=== PATIENT | female | born 1950 | race Asian ===

== ENCOUNTER 2024-07-14 14:24 | Inpatient (IN) | payer MEDICARE, OTHER ==
[~2024-07-14] VITALS: Ht 152.4 cm; Wt 47.2 kg
[2024-07-14] MEDS: IV NS 0.9% 500 ML BAG IV ONE (15:30)
[2024-07-14] MEDS: CEFEPIME 1 GM in IV D5W 50 ML IV ONE (15:30)
[2024-07-14 15:52] LABS: BASOPHILS % (AUTO) 0.6 % (0.0-2.0); EOSINOPHILS # (AUTO) 0.1 K/uL (0.0-0.7); EOSINOPHILS % (AUTO) 0.9 % (0.0-6.0); HEMATOCRIT 39 % (33-45); HEMOGLOBIN 13.1 g/dL (11.5-14.8); LYMPHOCYTES # (AUTO) 1.5 K/uL (0.8-4.8); LYMPHOCYTES % (AUTO) 25.3 % (20.0-44.0); MEAN CORPUSCULAR HEMOGLOBIN 32 PG (26.0-33.0); MEAN CORPUSCULAR HGB CONC 33 g/dl (31.0-36.0); MEAN CORPUSCULAR VOLUME 95 fL (82-100); MONOCYTES # (AUTO) 0.4 K/uL (0.1-1.30); MONOCYTES % (AUTO) 7.4 % (2.0-12.0); NEUTROPHILS % (AUTO) 65.8 % (43.0-81.0); PLATELET COUNT (AUTO) 260 K/uL (150-450); RED BLOOD CELL COUNT(AUTO) 4.12 MIL/uL (4.0-5.2)
[2024-07-14 16:05] LABS: INR 0.92 (0.91-1.10); PARTIAL THROMBOPLASTIN TIME 30.2 SEC (24.3-34.3); PROTHROMBIN TIME 9.8 SECS (9.2-11.1)
[2024-07-14 16:38] LABS: CALCIUM, SERUM 8.5 mg/dL (8.5-10.1); CARBON DIOXIDE 33 mmol/L (21-32); CHLORIDE 100 mmol/L (98-107); CREATININE 0.9 mg/dL (0.6-1.3); GLUCOSE 136 mg/dL (74-106); POTASSIUM 3.2 mmol/L (3.5-5.1); SODIUM SERUM 142 mmol/L (136-145); UREA NITROGEN, BLOOD 12 mg/dL (7-18)
[2024-07-14 16:44] LABS: ALANINE AMINOTRANSFERASE 13 U/L (12-78); ALBUMIN 3.4 g/dL (3.4-5.0); ALKALINE PHOSPHATASE 74 U/L (46-116); ASPARTATE AMINOTRANSFERASE 11 U/L (15-37); BILIRUBIN,DIRECT 0.1 mg/dL (0.0-0.2); BILIRUBIN,TOTAL 0.3 mg/dL (0.2-1.0); TOTAL PROTEIN, SERUM 7.8 g/dL (6.4-8.2)
[2024-07-14 16:49] LABS: LACTIC ACID 3.2 mmol/L (0.4-2.0)
[2024-07-14] MEDS: HALOPERIDOL LACTATE INJ 5 MG/ML VIAL IM ONE (17:02)
[2024-07-14] MEDS ORDERED: HALOPERIDOL LACTATE INJ 5 MG/ML VIAL ONE (17:03)
[2024-07-14] MEDS: IV NS 0.9% 1,000 ML BAG IV ONE (17:30)
[2024-07-14] MEDS: VANCOMYCIN 1 GM in IV D5W 250 ML IV ONE (17:30)
[2024-07-14 19:06] LABS: APPEARANCE,URINE CLEAR (CLEAR); BILIRUBIN,URINE NEGATIVE (NEGATIVE); BLOOD, URINE NEGATIVE Ery/uL (NEGATIVE); COLOR,URINE YELLOW (YELLOW); KETONES,URINE NEGATIVE (NEGATIVE); LEUKOCYTE ESTERASE ,URINE NEGATIVE (NEGATIVE); NITRITE, URINE NEGATIVE (NEGATIVE); PROTEIN,URINE NEGATIVE (NEGATIVE); UGLUCOSE NEGATIVE (NEGATIVE); UROBILINOGEN,URINE 0.2 EU/dL (0.2)
[2024-07-14 20:00] VITALS: BP_SYST 148; BP_SYST 151; BP_DIAS 75; BP_DIAS 81; TEMP 98.7; O2SAT 93; O2SAT 95
[2024-07-14] MEDS ORDERED: ONDANSETRON HCL/PF 4 MG/2 ML VIAL IVP PRN (20:00)
[2024-07-14] MEDS ORDERED: ACETAMINOPHEN 325 MG TABLET PO PRN (20:00)
[2024-07-14] MEDS ORDERED: Z GUARD REMEDY 4 OZ OINT TP PRN (20:00)
[2024-07-14] MEDS ORDERED: OLANZAPINE 10 MG VIAL IM PRN (20:00)
[2024-07-14] MEDS: IV LR 1000 ML 1,000 ML IV SCH (21:22)
[2024-07-14] MEDS: ENOXAPARIN SODIUM 40 MG/0.4 ML DISP.SYRIN SQ SCH (21:24)
[2024-07-15] MEDS: VANCOMYCIN 500 MG in IV D5W 100ml IV SCH (05:10)
[2024-07-15 07:42] LABS: BASOPHILS % (AUTO) 0.8 % (0.0-2.0); EOSINOPHILS % (AUTO) 0.8 % (0.0-6.0); HEMATOCRIT 37 % (33-45); HEMOGLOBIN 12.3 g/dL (11.5-14.8); LYMPHOCYTES # (AUTO) 1.6 K/uL (0.8-4.8); MEAN CORPUSCULAR HEMOGLOBIN 32 PG (26.0-33.0); MEAN CORPUSCULAR HGB CONC 33 g/dl (31.0-36.0); MEAN CORPUSCULAR VOLUME 96 fL (82-100); MONOCYTES # (AUTO) 0.7 K/uL (0.1-1.30); MONOCYTES % (AUTO) 11.3 % (2.0-12.0); NEUTROPHILS # (AUTO) 3.5 K/uL (1.8-8.9); NEUTROPHILS % (AUTO) 59.1 % (43.0-81.0); PLATELET COUNT (AUTO) 214 K/uL (150-450); RED BLOOD CELL COUNT(AUTO) 3.84 MIL/uL (4.0-5.2); RED CELL DISTRIBUTION WIDTH 14.1 % (11.5-15.0); WHITE BLOOD COUNT (AUTO) 5.9 K/uL (4.3-11.0)
[2024-07-15 08:05] LABS: CALCIUM, SERUM 8.1 mg/dL (8.5-10.1); CARBON DIOXIDE 28 mmol/L (21-32); CHLORIDE 108 mmol/L (98-107); CREATININE 0.7 mg/dL (0.6-1.3); GLUCOSE 112 mg/dL (74-106); MAGNESIUM 2.3 mg/dL (1.8-2.4); PHOSPHORUS 3.2 mg/dL (2.5-4.9); POTASSIUM 3.2 mmol/L (3.5-5.1); SODIUM SERUM 143 mmol/L (136-145); UREA NITROGEN, BLOOD 6 mg/dL (7-18)
[2024-07-15] MEDS: PANTOPRAZOLE 40 MG TABLET.DR PO SCH (08:10)
[2024-07-15 08:27] LABS: CHOLESTEROL 109 mg/dL (<200); HDL CHOLESTEROL 62 mg/dL (40-60); LDL 54 mg/dL (0-99); TRIGLYCERIDES 67 mg/dL (30-150)
[2024-07-15] MEDS: POTASSIUM CHLORIDE 20 MEQ TAB.PRT.SR PO SCH (10:12)
[2024-07-15] MEDS ORDERED: DOXY100T2 PO (12:29)
[2024-07-15 17:00] VITALS: BP 149/86; TEMP 97.5; O2SAT 100
[2024-07-15 20:29] VITALS: BP 119/48; TEMP 98.1; O2SAT 99
[2024-07-16] MEDS ORDERED: ASCO500T10 PO (02:01)
[2024-07-16] MEDS ORDERED: ASPI-1420 PO (02:01)
[2024-07-16] MEDS ORDERED: ATOR10TA PO (02:02)
[2024-07-16] MEDS ORDERED: CYAN500T64 PO (02:03)
[2024-07-16] MEDS ORDERED: BETH5TAB2 PO (02:03)
[2024-07-16] MEDS ORDERED: DIVA500T2 PO (02:05)
[2024-07-16] MEDS ORDERED: DOCU250C14 PO (02:06)
[2024-07-16] MEDS ORDERED: DONE5TAB34 PO (02:06)
[2024-07-16] MEDS ORDERED: GABA-532 PO (02:09)
[2024-07-16] MEDS ORDERED: IPRA3AMP22 IH (02:09)
[2024-07-16] MEDS ORDERED: METF-440 PO (02:10)
[2024-07-16] MEDS ORDERED: FURO-145 PO (02:10)
[2024-07-16] MEDS ORDERED: SENN8.6T19 PO (02:11)
[2024-07-16] MEDS ORDERED: MULT-1119 PO (02:12)
[2024-07-16] MEDS ORDERED: TRAM50TA PO (02:13)
== END 2024-07-15 21:23 | DRG 602 ==
LOC: ER 14:58 → MED 19:27
PROVIDERS: ADMIT Nurse Practitioner Acute Care; ATTEND Nurse Practitioner Acute Care
DX: L03.115 Cellulitis of right lower limb (principal); G93.41 Metabolic encephalopathy; E87.20 Acidosis, unspecified; E87.6 Hypokalemia; F03.90 Unspecified dementia, unspecified severity, without behavioral disturbance, psychotic disturbance, mood disturbance, and anxiety; K62.3 Rectal prolapse; F39 Unspecified mood [affective] disorder
CPT/HCPCS: 36415; 71045-TC; 80048-TC; 80061-TC; 80076-TC; 83605-TC; 83735-TC; 84100-TC; 84484-TC; 85025-TC; 85730-TC; 87040-TC; 87086-TC; 93971-TC; A4223; G0378; J0692; J1630; J1650; J3370; J7030; J7040; J7060; J7120

== ENCOUNTER 2024-07-15 21:53 | Inpatient (IN) | payer MEDICARE, OTHER ==
[~2024-07-15] VITALS: Ht 152.4 cm; Wt 47.2 kg
[~2024-07-15 21:53] MED LIST: DOXY100T2 PO
[2024-07-15] MEDS ORDERED: MAGNESIUM HYDROXIDE 30 ML UDC PO PRN (23:30)
[2024-07-15] MEDS ORDERED: MAG HYDROX/AL HYDROX/SIMETH 30 ML UDC PO PRN (23:30)
[2024-07-15] MEDS ORDERED: ZOLPIDEM TARTRATE 5 MG TABLET PO PRN ×2 (23:30)
[2024-07-15] MEDS ORDERED: ACETAMINOPHEN 325 MG TABLET PO PRN (23:30)
[2024-07-16] MEDS: BLOOD SUGAR DIAGNOSTIC 1 EACH STRIP IN ONE (00:16)
[2024-07-16] MEDS ORDERED: ASCO500T10 PO (02:01)
[2024-07-16] MEDS ORDERED: ASPI-1420 PO (02:01)
[2024-07-16] MEDS ORDERED: ATOR10TA PO (02:02)
[2024-07-16] MEDS ORDERED: CYAN500T64 PO (02:03)
[2024-07-16] MEDS ORDERED: BETH5TAB2 PO (02:03)
[2024-07-16] MEDS ORDERED: DIVA500T2 PO (02:05)
[2024-07-16] MEDS ORDERED: DOCU250C14 PO (02:06)
[2024-07-16] MEDS ORDERED: DONE5TAB34 PO (02:06)
[2024-07-16] MEDS ORDERED: IPRA3AMP22 IH (02:09)
[2024-07-16] MEDS ORDERED: GABA-532 PO (02:09)
[2024-07-16] MEDS ORDERED: METF-440 PO (02:10)
[2024-07-16] MEDS ORDERED: FURO-145 PO (02:10)
[2024-07-16] MEDS ORDERED: SENN8.6T19 PO (02:11)
[2024-07-16] MEDS ORDERED: MULT-1119 PO (02:12)
[2024-07-16] MEDS ORDERED: TRAM50TA PO (02:13)
[2024-07-16 08:00] VITALS: BP 119/56; TEMP 97.8; O2SAT 98
[2024-07-16] MEDS ORDERED: HOME MED MISCELLANEOUS XX SCH (15:00)
[2024-07-16 16:00] VITALS: BP 111/85; TEMP 97.9; O2SAT 98
[2024-07-16] MEDS ORDERED: IPRATROPIUM NEB FS 0.5 MG/2.5 ML AMPUL.NEB NEB PRN (16:00)
[2024-07-16] MEDS ORDERED: ALBUTEROL FS 2.5 MG/0.5 ML VIAL.NEB NEB PRN (16:00)
[2024-07-16] MEDS: SENNOSIDES 8.6 MG TABLET PO SCH (16:33)
[2024-07-16] MEDS: DOXYCYCLINE HYCLATE (100 MG) 100 MG TABLET PO SCH (16:33)
[2024-07-16] MEDS: GABAPENTIN 100 MG CAPSULE PO SCH (16:33)
[2024-07-16] MEDS: METFORMIN 500 MG TABLET PO SCH (16:33)
[2024-07-16] MEDS: OXCARBAZEPINE 150 MG TABLET PO SCH (16:34)
[2024-07-16 20:38] VITALS: BP 130/67; TEMP 98.2; O2SAT 97
[2024-07-16] MEDS ORDERED: BETHANECHOL CHLORIDE 5 MG TABLET PO SCH (21:00)
[2024-07-16] MEDS: MIRTAZAPINE 15 MG TABLET PO SCH (21:13)
[2024-07-16] MEDS: DONEPEZIL 5 MG TABLET PO SCH (21:13)
[2024-07-16] MEDS: ATORVASTATIN 10 MG TABLET PO SCH (21:13)
[2024-07-17 08:00] VITALS: BP 117/59; TEMP 97.8; O2SAT 97
[2024-07-17] MEDS: FUROSEMIDE 20 MG TABLET PO SCH (08:41)
[2024-07-17] MEDS: DOCUSATE SODIUM 250 MG CAPSULE PO SCH (08:42)
[2024-07-17] MEDS: CYANOCOBALAMIN 500 MCG TABLET PO SCH (08:42)
[2024-07-17] MEDS: MULTIVITAMINS,THERAGRAN 1 UDTAB TABLET PO SCH (08:42)
[2024-07-17] MEDS: ASPIRIN EC 81 MG TABLET.DR PO SCH (08:42)
[2024-07-17] MEDS: ASCORBIC ACID 500 MG TABLET PO SCH (08:42)
[2024-07-17 08:47] LABS: BASOPHILS % (AUTO) 0.8 % (0.0-2.0); EOSINOPHILS # (AUTO) 0.1 K/uL (0.0-0.7); EOSINOPHILS % (AUTO) 1.5 % (0.0-6.0); HEMATOCRIT 32 % (33-45); HEMOGLOBIN 10.7 g/dL (11.5-14.8); LYMPHOCYTES # (AUTO) 1.7 K/uL (0.8-4.8); LYMPHOCYTES % (AUTO) 32.6 % (20.0-44.0); MEAN CORPUSCULAR HEMOGLOBIN 32 PG (26.0-33.0); MEAN CORPUSCULAR HGB CONC 33 g/dl (31.0-36.0); MEAN CORPUSCULAR VOLUME 97 fL (82-100); MONOCYTES # (AUTO) 0.5 K/uL (0.1-1.30); MONOCYTES % (AUTO) 9.4 % (2.0-12.0); NEUTROPHILS % (AUTO) 55.7 % (43.0-81.0); PLATELET COUNT (AUTO) 221 K/uL (150-450); RED BLOOD CELL COUNT(AUTO) 3.33 MIL/uL (4.0-5.2); RED CELL DISTRIBUTION WIDTH 14.1 % (11.5-15.0); WHITE BLOOD COUNT (AUTO) 5.4 K/uL (4.3-11.0)
[2024-07-17 09:05] LABS: BILIRUBIN,TOTAL 0.4 mg/dL (0.2-1.0); CALCIUM, SERUM 8.4 mg/dL (8.5-10.1); CREATININE 0.7 mg/dL (0.6-1.3); POTASSIUM 3.3 mmol/L (3.5-5.1)
[2024-07-17 09:06] LABS: ALBUMIN 2.7 g/dL (3.4-5.0); TOTAL PROTEIN, SERUM 6.1 g/dL (6.4-8.2)
[2024-07-17 16:04] VITALS: BP 120/62; TEMP 97.7; O2SAT 100
[2024-07-17 20:21] VITALS: BP 115/55; TEMP 97.7; O2SAT 97
[2024-07-18 08:00] VITALS: BP 146/76; TEMP 97.9; O2SAT 100
[2024-07-18 16:00] VITALS: BP 120/88; TEMP 97.8; O2SAT 99
[2024-07-18 21:12] VITALS: BP 114/50; TEMP 97.9; O2SAT 98
[2024-07-18] MEDS: OXCARBAZEPINE 150 MG TABLET PO SCH (21:39)
[2024-07-19] MEDS ORDERED: Z GUARD REMEDY 4 OZ OINT TP PRN (07:30)
[2024-07-19 08:00] VITALS: BP 140/76; TEMP 98.6; O2SAT 97
[2024-07-19] MEDS: Z GUARD REMEDY 4 OZ OINT TP SCH (09:05)
[2024-07-19 16:00] VITALS: BP 114/54; TEMP 97.8; O2SAT 98
[2024-07-19 20:00] VITALS: BP 142/69; TEMP 97.8; O2SAT 95
[2024-07-19] MEDS: TRAMADOL HCL 50 MG TABLET PO PRN (21:54)
[2024-07-20 08:00] VITALS: BP 118/64; TEMP 98.7; O2SAT 97
[2024-07-20 16:00] VITALS: BP 133/50; TEMP 97.9; O2SAT 96
[2024-07-20 20:26] VITALS: BP 132/62; TEMP 98.3; O2SAT 97
[2024-07-21 08:23] VITALS: BP 126/62; TEMP 97.8; O2SAT 100
[2024-07-21] MEDS: OXCARBAZEPINE 150 MG TABLET PO SCH (14:09)
[2024-07-21 15:51] VITALS: BP 122/94; TEMP 97.9; O2SAT 98
[2024-07-21 20:00] VITALS: BP 115/46; TEMP 98.1; O2SAT 97
[2024-07-21] MEDS: MIRTAZAPINE 15 MG TABLET PO SCH (21:33)
[2024-07-22 08:00] VITALS: BP 120/70; TEMP 97.7; O2SAT 98
[2024-07-22 08:03] LABS: BASOPHILS # (AUTO) 0.1 K/uL (0.0-0.2); BASOPHILS % (AUTO) 0.8 % (0.0-2.0); EOSINOPHILS % (AUTO) 0.4 % (0.0-6.0); HEMATOCRIT 34 % (33-45); HEMOGLOBIN 11.5 g/dL (11.5-14.8); LYMPHOCYTES # (AUTO) 1.9 K/uL (0.8-4.8); LYMPHOCYTES % (AUTO) 26.2 % (20.0-44.0); MEAN CORPUSCULAR HEMOGLOBIN 32 PG (26.0-33.0); MEAN CORPUSCULAR HGB CONC 34 g/dl (31.0-36.0); MEAN CORPUSCULAR VOLUME 95 fL (82-100); MONOCYTES # (AUTO) 0.6 K/uL (0.1-1.30); NEUTROPHILS # (AUTO) 4.6 K/uL (1.8-8.9); NEUTROPHILS % (AUTO) 63.6 % (43.0-81.0); PLATELET COUNT (AUTO) 339 K/uL (150-450); RED BLOOD CELL COUNT(AUTO) 3.56 MIL/uL (4.0-5.2); RED CELL DISTRIBUTION WIDTH 14.1 % (11.5-15.0); WHITE BLOOD COUNT (AUTO) 7.2 K/uL (4.3-11.0)
[2024-07-22 08:25] LABS: CALCIUM, SERUM 9.1 mg/dL (8.5-10.1); CREATININE 0.8 mg/dL (0.6-1.3); POTASSIUM 3.5 mmol/L (3.5-5.1)
[2024-07-22 16:00] VITALS: BP 109/93; TEMP 97.4; O2SAT 94
[2024-07-22 19:48] VITALS: BP 113/50; TEMP 97.4; O2SAT 98
[2024-07-23 08:00] VITALS: BP 118/55; TEMP 97.5; O2SAT 98
[2024-07-23 16:00] VITALS: BP 115/56; TEMP 97.7; O2SAT 97
[2024-07-23] MEDS: QUETIAPINE FUMARATE 25 MG TABLET PO SCH (20:50)
[2024-07-23 21:14] VITALS: BP 124/89; TEMP 97.9; O2SAT 96
[2024-07-24 08:00] VITALS: BP 135/86; TEMP 98.6; O2SAT 99
[2024-07-24 16:00] VITALS: BP 100/53; TEMP 98.6; O2SAT 98
[2024-07-24 21:00] VITALS: BP 118/54; TEMP 98.2; O2SAT 98
[2024-07-25 08:00] VITALS: BP 141/56; TEMP 97.9; O2SAT 98
[2024-07-25] MEDS: GABAPENTIN 100 MG CAPSULE PO SCH (12:20)
[2024-07-25 16:00] VITALS: BP 113/53; TEMP 97.8; O2SAT 98
[2024-07-25 20:32] VITALS: BP 133/62; TEMP 97.9; O2SAT 97
[2024-07-26 08:00] VITALS: BP 142/65; TEMP 98.1; O2SAT 96
== END 2024-07-26 16:10 | DRG 885 ==
LOC: GPS 21:53
PROVIDERS: ADMIT Psychiatry & Neurology Psychiatry; ATTEND Internal Medicine
DX: F39 Unspecified mood [affective] disorder (principal); F01.53 Vascular dementia, unspecified severity, with mood disturbance; L03.115 Cellulitis of right lower limb; L03.116 Cellulitis of left lower limb; F01.52 Vascular dementia, unspecified severity, with psychotic disturbance; Z20.822 Contact with and (suspected) exposure to COVID-19; E78.5 Hyperlipidemia, unspecified; E11.40 Type 2 diabetes mellitus with diabetic neuropathy, unspecified; M51.369 Other intervertebral disc degeneration, lumbar region without mention of lumbar back pain or lower extremity pain; J44.9 Chronic obstructive pulmonary disease, unspecified; F32.9 Major depressive disorder, single episode, unspecified; Z73.6 Limitation of activities due to disability; K62.3 Rectal prolapse; I10 Essential (primary) hypertension; G89.4 Chronic pain syndrome; I34.1 Nonrheumatic mitral (valve) prolapse; Z79.899 Other long term (current) drug therapy; Z86.15 Personal history of latent tuberculosis infection; Z86.16 Personal history of COVID-19; Z87.891 Personal history of nicotine dependence; F06.8 Other specified mental disorders due to known physiological condition; R59.0 Localized enlarged lymph nodes; I77.6 Arteritis, unspecified
CPT/HCPCS: 36415; 80048-TC; 80053-TC; 80061-TC; 82962-TC; 83735-TC; 85025-TC; 87081-TC; 93971-TC

== ENCOUNTER 2024-10-31 18:05 | Inpatient (IN) | payer MEDICARE, OTHER ==
[~2024-10-31] VITALS: Ht 152.4 cm; Wt 45.4 kg
[~2024-10-31 18:05] MED LIST changes: +ASCO500T10 PO; +ASPI-1420 PO; +ATOR10TA PO; +BETH5TAB2 PO; +CYAN500T64 PO; +DOCU250C14 PO; +DONE5TAB34 PO; +FURO-145 PO; +GABA-532 PO; +IPRA3AMP22 IH; +METF-440 PO; +MULT-1119 PO; +SENN8.6T19 PO; +TRAM50TA PO
[2024-10-31 19:23] LABS: BASOPHILS # (AUTO) 0.1 K/uL (0.0-0.2); BASOPHILS % (AUTO) 1.2 % (0.0-2.0); EOSINOPHILS # (AUTO) 0.2 K/uL (0.0-0.7); EOSINOPHILS % (AUTO) 2.6 % (0.0-6.0); HEMATOCRIT 36 % (33-45); MEAN CORPUSCULAR HEMOGLOBIN 30 PG (26.0-33.0); MEAN CORPUSCULAR HGB CONC 33 g/dl (31.0-36.0); MEAN CORPUSCULAR VOLUME 89 fL (82-100); MONOCYTES # (AUTO) 0.4 K/uL (0.1-1.30); NEUTROPHILS # (AUTO) 3.4 K/uL (1.8-8.9); NEUTROPHILS % (AUTO) 57.2 % (43.0-81.0); PLATELET COUNT (AUTO) 293 K/uL (150-450); RED BLOOD CELL COUNT(AUTO) 4.03 MIL/uL (4.0-5.2); RED CELL DISTRIBUTION WIDTH 15.5 % (11.5-15.0)
[2024-10-31 19:42] LABS: ALANINE AMINOTRANSFERASE 28 U/L (12-78); ALBUMIN 3.7 g/dL (3.4-5.0); ALKALINE PHOSPHATASE 97 U/L (46-116); ASPARTATE AMINOTRANSFERASE 24 U/L (15-37); BILIRUBIN,DIRECT 0.1 mg/dL (0.0-0.2); BILIRUBIN,TOTAL 0.2 mg/dL (0.2-1.0); CALCIUM, SERUM 8.9 mg/dL (8.5-10.1); CARBON DIOXIDE 34 mmol/L (21-32); CHLORIDE 103 mmol/L (98-107); CREATININE 0.8 mg/dL (0.6-1.3); GLUCOSE 118 mg/dL (74-106); POTASSIUM 3.1 mmol/L (3.5-5.1); SODIUM SERUM 144 mmol/L (136-145); TOTAL PROTEIN, SERUM 7.5 g/dL (6.4-8.2); UREA NITROGEN, BLOOD 13 mg/dL (7-18)
[2024-10-31 19:43] LABS: ACETAMINOPHEN <10 ug/ml (10-30); ALCOHOL, BLOOD < 3 mg/dL (0-10); SALICYLATE 1.1 mg/dL (2.8-20.0)
[2024-10-31] MEDS ORDERED: MINE133E RC (19:51)
[2024-10-31] MEDS ORDERED: BISA10SU11 RC (19:51)
[2024-10-31] MEDS ORDERED: OXCA300T15 PO (19:51)
[2024-10-31] MEDS ORDERED: QUET25TA PO (19:51)
[2024-10-31] MEDS ORDERED: ACET-73 PO (19:51)
[2024-10-31] MEDS ORDERED: MAGN400O6 PO (19:51)
[2024-10-31] MEDS ORDERED: MIRT-90 PO (19:51)
[2024-10-31] MEDS ORDERED: LORA-258 PO (19:51)
[2024-10-31 20:09] LABS: APPEARANCE,URINE CLEAR (CLEAR); BILIRUBIN,URINE NEGATIVE (NEGATIVE); BLOOD, URINE NEGATIVE Ery/uL (NEGATIVE); COLOR,URINE YELLOW (YELLOW); KETONES,URINE NEGATIVE (NEGATIVE); LEUKOCYTE ESTERASE ,URINE 1+ (NEGATIVE); NITRITE, URINE POSITIVE (NEGATIVE); PROTEIN,URINE NEGATIVE (NEGATIVE); UGLUCOSE NEGATIVE (NEGATIVE); UROBILINOGEN,URINE 0.2 EU/dL (0.2)
[2024-10-31 20:17] LABS: AMPHETAMINE, URINE NEGATIVE (NEGATIVE); BARBITURATE, URINE NEGATIVE (NEGATIVE); BENZODIAZEPINE, URINE NEGATIVE (NEGATIVE); CANNABINOID, URINE NEGATIVE (NEGATIVE); COCCAINE, URINE NEGATIVE (NEGATIVE); OPIATE, URINE NEGATIVE (NEGATIVE); PHENCYCLIDINE SCREEN,URINE NEGATIVE (NEGATIVE)
[2024-10-31 20:58] LABS: ADD URINE CULTURE YES; BACTERIA,URINE Many /HPF (None Seen); RBC,URINE 0-2 /HPF (0-2); SQUAMOUS EPITHELIAL CELL,UR Few /HPF (None Seen)
[2024-10-31] MEDS ORDERED: CEPHALEXIN MONOHYDRATE 500 MG CAPSULE PO ONE (21:03)
[2024-10-31] MEDS ORDERED: POTASSIUM CHLORIDE 20 MEQ TAB.PRT.SR PO ONE (21:04)
[2024-10-31] MEDS: POTASSIUM CHLORIDE 20 MEQ TAB.PRT.SR PO ONE (21:44)
[2024-10-31] MEDS: CEPHALEXIN MONOHYDRATE 500 MG CAPSULE PO ONE (21:45)
[2024-10-31] MEDS ORDERED: MAGNESIUM HYDROXIDE 30 ML UDC PO PRN ×2 (22:00→23:00)
[2024-10-31] MEDS ORDERED: ACETAMINOPHEN ES 500 MG TABLET PO PRN (22:00)
[2024-10-31] MEDS ORDERED: MINERAL OIL 133 ML (PYXIS) 1 EA ENEMA RC PRN (22:00)
[2024-10-31] MEDS ORDERED: MIRTAZAPINE 15 MG TABLET PO SCH (22:00)
[2024-10-31] MEDS ORDERED: BISACODYL SUPP (10 MG) 10 MG/SUPP.RECT SUPP.RECT RC PRN (22:00)
[2024-10-31] MEDS ORDERED: DEXTROSE 50%-WATER 50 ML DISP.SYRIN IV PRN (22:30)
[2024-10-31 23:00] VITALS: BP 146/72; TEMP 98.5; O2SAT 99
[2024-10-31] MEDS ORDERED: MAG HYDROX/AL HYDROX/SIMETH 30 ML UDC PO PRN (23:00)
[2024-10-31] MEDS: ZOLPIDEM TARTRATE 5 MG TABLET PO PRN (23:20)
[2024-10-31] MEDS: BLOOD SUGAR DIAGNOSTIC 1 EACH STRIP IN ONE (23:20)
[2024-10-31] MEDS: DONEPEZIL 5 MG TABLET PO SCH (23:20)
[2024-10-31] MEDS: ATORVASTATIN 10 MG TABLET PO SCH (23:20)
[2024-10-31] MEDS: ACETAMINOPHEN 325 MG TABLET PO PRN (23:21)
[2024-11-01 08:00] VITALS: BP 128/63; TEMP 97.5; O2SAT 98
[2024-11-01 08:14] LABS: ALBUMIN 3.3 g/dL (3.4-5.0); BILIRUBIN,TOTAL 0.3 mg/dL (0.2-1.0); CALCIUM, SERUM 9.1 mg/dL (8.5-10.1); CREATININE 0.7 mg/dL (0.6-1.3); POTASSIUM 3.8 mmol/L (3.5-5.1); TOTAL PROTEIN, SERUM 6.8 g/dL (6.4-8.2)
[2024-11-01] MEDS: BLOOD SUGAR DIAGNOSTIC 1 EACH STRIP IN SCH (08:19)
[2024-11-01] MEDS: FUROSEMIDE 20 MG TABLET PO SCH (08:20)
[2024-11-01] MEDS: ASPIRIN EC 81 MG TABLET.DR PO SCH (08:20)
[2024-11-01] MEDS: DOCUSATE SODIUM 250 MG CAPSULE PO SCH (08:20)
[2024-11-01] MEDS: CYANOCOBALAMIN 500 MCG TABLET PO SCH (08:20)
[2024-11-01] MEDS: ASCORBIC ACID 500 MG TABLET PO SCH (08:20)
[2024-11-01] MEDS: NITROFURANTOIN/MONOHYDRATE MACROCRYSTALS 100 MG CAPSULE PO SCH (08:20)
[2024-11-01] MEDS: INSULIN REGULAR, HUMAN 100 UNIT/ML 3 ML VIAL SQ PRN (08:26)
[2024-11-01] MEDS ORDERED: OXCARBAZEPINE 150 MG TABLET PO SCH (09:00)
[2024-11-01] MEDS ORDERED: METFORMIN 500 MG TABLET PO SCH (09:00)
[2024-11-01 16:00] VITALS: BP 116/64; TEMP 98.7; O2SAT 98
[2024-11-01 20:03] VITALS: BP 126/71; TEMP 98.4; O2SAT 96
[2024-11-01] MEDS: DIVALPROEX SODIUM 125 MG TABLET.DR PO SCH (21:02)
[2024-11-01] MEDS: MIRTAZAPINE 15 MG TABLET PO SCH (21:21)
[2024-11-02 08:00] VITALS: BP 132/68; TEMP 98.6; O2SAT 100
[2024-11-02] MEDS: POLYETHYLENE GLYCOL 3350 17 GM POWD.PACK PO SCH ×2 (10:39→22:04)
[2024-11-02 16:00] VITALS: BP 115/55; TEMP 98.7; O2SAT 97
[2024-11-02 20:04] VITALS: BP 111/44; TEMP 98.7; O2SAT 97
[2024-11-02] MEDS: QUETIAPINE FUMARATE 25 MG TABLET PO SCH (21:31)
[2024-11-03 08:00] VITALS: BP 121/83; TEMP 97.7; O2SAT 95
[2024-11-03] MEDS: DIVALPROEX SODIUM 125 MG TABLET.DR PO SCH (15:29)
[2024-11-03 16:00] VITALS: BP 135/86; TEMP 97.6; O2SAT 98
[2024-11-03 20:00] VITALS: BP 122/57; TEMP 97.9; O2SAT 98
[2024-11-04 08:00] VITALS: BP 119/70; TEMP 97.9; O2SAT 94
[2024-11-04 16:00] VITALS: BP 111/71; TEMP 98.2; O2SAT 100
[2024-11-04 20:00] VITALS: BP 116/72; TEMP 98.2; O2SAT 97
[2024-11-05 08:00] VITALS: BP 113/50; TEMP 97.7; O2SAT 97
[2024-11-05 16:00] VITALS: BP 110/58; TEMP 97.8; O2SAT 97
[2024-11-05 20:21] VITALS: BP 120/64; TEMP 98; O2SAT 97
[2024-11-06 08:00] VITALS: BP 123/60; TEMP 97.9; O2SAT 98
[2024-11-06] MEDS: DIVALPROEX SODIUM 125 MG TABLET.DR PO SCH (14:51)
[2024-11-06 15:48] VITALS: BP 124/59; TEMP 98.3; O2SAT 98
[2024-11-06 20:11] VITALS: BP 129/78; TEMP 98.5; O2SAT 96
[2024-11-07 08:00] VITALS: BP 155/65; TEMP 97.7; O2SAT 97
[2024-11-07 16:00] VITALS: BP 118/96; TEMP 98.1; O2SAT 97
[2024-11-07 20:09] VITALS: BP 136/74; TEMP 98; O2SAT 96
[2024-11-07 22:32] VITALS: BP 136/74; TEMP 98; O2SAT 96
[2024-11-08 08:00] VITALS: BP 153/74; TEMP 97.8; O2SAT 99
[2024-11-08 16:00] VITALS: BP 104/54; TEMP 97.8; O2SAT 94
[2024-11-08 20:04] VITALS: BP 117/73; TEMP 98.2; O2SAT 97
[2024-11-09 08:00] VITALS: BP 149/85; TEMP 97.9; O2SAT 97
[2024-11-09 16:00] VITALS: BP 105/86; TEMP 97.8; O2SAT 96
[2024-11-09 20:21] VITALS: BP 145/79; TEMP 97.8; O2SAT 98
[2024-11-10 08:00] VITALS: BP 117/60; TEMP 98; O2SAT 100
[2024-11-10 16:00] VITALS: BP 136/71; TEMP 98; O2SAT 97
[2024-11-10 20:00] VITALS: BP 112/63; TEMP 98.6; O2SAT 97
[2024-11-11 08:00] VITALS: BP 144/63; TEMP 97.8; O2SAT 96
[2024-11-11 16:00] VITALS: BP 134/71; TEMP 98; O2SAT 94
[2024-11-11 20:16] VITALS: BP 109/65; TEMP 98; O2SAT 98
[2024-11-12 08:00] VITALS: BP 121/69; TEMP 97.7; O2SAT 100
[2024-11-12 16:00] VITALS: BP 129/99; TEMP 98.1; O2SAT 98
[2024-11-12 20:59] VITALS: BP 105/91; TEMP 98.2; O2SAT 100
[2024-11-13 08:00] VITALS: BP 143/76; TEMP 98; O2SAT 97
[2024-11-13 16:00] VITALS: BP 118/73; TEMP 97.7; O2SAT 96
[2024-11-13 20:44] VITALS: BP 135/64; TEMP 98.1; O2SAT 96
[2024-11-14 08:00] VITALS: BP 138/68; TEMP 97.8; O2SAT 96
== END 2024-11-14 11:00 | DRG 885 ==
LOC: ER 18:10 → GPS 20:56
PROVIDERS: ADMIT Psychiatry & Neurology Psychiatry; ATTEND Internal Medicine
DX: F39 Unspecified mood [affective] disorder (principal); G93.41 Metabolic encephalopathy; N39.0 Urinary tract infection, site not specified; F03.92 Unspecified dementia, unspecified severity, with psychotic disturbance; F03.93 Unspecified dementia, unspecified severity, with mood disturbance; Z16.12 Extended spectrum beta lactamase (ESBL) resistance; F03.911 Unspecified dementia, unspecified severity, with agitation; F29 Unspecified psychosis not due to a substance or known physiological condition; E87.6 Hypokalemia; E78.5 Hyperlipidemia, unspecified; E11.9 Type 2 diabetes mellitus without complications; I25.10 Atherosclerotic heart disease of native coronary artery without angina pectoris; B96.20 Unspecified Escherichia coli [E. coli] as the cause of diseases classified elsewhere; F32.9 Major depressive disorder, single episode, unspecified; G89.4 Chronic pain syndrome; K62.3 Rectal prolapse; I10 Essential (primary) hypertension; Z79.84 Long term (current) use of oral hypoglycemic drugs; Z79.899 Other long term (current) drug therapy; K21.9 Gastro-esophageal reflux disease without esophagitis; Z73.6 Limitation of activities due to disability; Z91.148 Patient's other noncompliance with medication regimen for other reason; Z20.822 Contact with and (suspected) exposure to COVID-19
CPT/HCPCS: 36415; 80048-TC; 80053-TC; 80076-TC; 80164-TC; 81001; 82962-TC; 85025-TC; 87081-TC; 87086-TC; 87186-TC; G0480; J1815